=== PATIENT | male | born 1965 | race Caucasian/White ===

== ENCOUNTER 2016-10-31 19:23 | Emergency (ER) | payer BC ==
[2016-10-31 19:34] VITALS: BP 121/82
--- NOTE | 2016-10-31 19:46 | UC ---
Skin Complaint HPI - HPI Summary HPI Summary: 51 year old male presents with red hot swollen right foot with purulent discharge. I will send him to the ER. I spoke to Jeimy Rao. - History of Current Complaint Chief Complaint: UCLowerExtremity Time Seen by Provider: 10/31/16 19:37 Stated Complaint: FOOT INFECTION - Allergy/Home Medications Allergies/Adverse Reactions: Allergies Allergy/AdvReac Type Severity Reaction Status Date / Time Clindamycin Allergy SEVERE Verified 10/31/16 19:34 VOMITING. HIVES & ITCHY Doxycycline Allergy SEVERE Verified 10/31/16 19:34 VOMITING. HIVES & ITCHY Vancomycin Allergy RED MAN'S Verified 10/31/16 19:34 DISEASE Home Medications: Home Medications Gabapentin CAP(*) [Neurontin 300 CAP(*)] 300 mg PO TID 10/31/16 [History Confirmed 10/31/16] Sulfamethox/Trimethoprim DS* [Bactrim DS 800/160 TAB*] 1 tab PO BID 10/31/16 [ History Confirmed 10/31/16] Review of Systems Constitutional: Negative Skin: Other - right septic foot Eyes: Negative ENT: Negative Respiratory: Negative Cardiovascular: Negative Gastrointestinal: Negative Genitourinary: Negative Motor: Negative Neurovascular: Negative Musculoskeletal: Other: - right foot swelling, tender, erythema Neurological: Negative Psychological: Negative All Other Systems Reviewed And Are Negative: Yes PMH/Surg Hx/FS Hx/Imm Hx - Surgical History Surgical History: Yes Surgery Procedure, Year, and Place: - 2014 - Social History Alcohol Use: Occasionally Substance Use Type: None Smoking Status (MU): Never Smoked Tobacco Physical Exam Triage Information Reviewed: Yes Vital Signs: Initial Vital Signs Temp 36.6 C 10/31/16 19:28 Pulse 80 10/31/16 19:28 Resp 16 10/31/16 19:28 BP 121/82 10/31/16 19:28 Pulse Ox 93 10/31/16 19:28 Eye Exam: Normal ENT Exam: Normal Dental Exam: Normal Neck exam: Normal Neck: Positive: 1 Respiratory Exam: Normal Cardiovascular Exam: Normal Abdominal Exam: Normal Musculoskeletal: Positive: Edema @, Other: - right foot swelling, erythema, tender, purulent discharge Neurological Exam: Normal Psychological Exam: Normal Skin Exam: Normal Course/Dx - Diagnoses Provider Diagnoses: right spetic foot with purulent discharge Discharge - Discharge Plan Condition: Stable Disposition: AGAINST MEDICAL ADVICE Referrals: Joaquin Villalpando MD [Medical Doctor] -
== END 2016-10-31 19:55 | disposition left against medical advice (07) ==
LOC: UCCORT 19:23
DX: L03.115 Cellulitis of right lower limb (principal); Z53.20 Procedure and treatment not carried out because of patient's decision for unspecified reasons
CPT/HCPCS: 99212; G0463